=== PATIENT | female | born 1970 | race Caucasian/White ===

== ENCOUNTER → 2017-06-21 | Outpatient (CLI) | payer BC ==
[~2017-06-21] MED LIST: ACET-1256 PO; AZAT50TA17 PO; IBUP-1050 PO; METO50TA17 PO; TEMA-79 PO
--- NOTE | 2017-06-21 13:36 | DIAGNOSTIC IMAGING REPORT ---
SI JOINTS 3 OR MORE VIEWS HISTORY: 46 years-old Female acute low back pain, right greater than left. COMPARISON: Lumbar spine radiographs 10/13/2016 TECHNIQUE: 4 views of the sacroiliac joints. FINDINGS: Mild marginal spurring and subcortical sclerosis involve the sacroiliac joints bilaterally. No erosive changes are identified. The sacrum and imaged pelvis appears intact without acute fracture or dislocation. Mild facet arthrosis involves the imaged lower lumbar spine, notably at L5-S1. 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 The above report was generated using voice recognition software. It may contain grammatical, syntax or spelling errors. Electronically signed by: Julio Leigh M.D. 06/21/2017 1:35 PM Dictated Date/Time: 06/21/2017 1:33 PM
== END | disposition home or self-care (01) ==
LOC: C.RAD1850 13:03
PROVIDERS: ATTEND Internal Medicine Gastroenterology
DX: K51.90 Ulcerative colitis, unspecified, without complications (principal); M54.5 Low back pain